=== PATIENT | male | born 1970 | race African-American/Black ===

== ENCOUNTER 2018-05-31 06:37 | Emergency (ER) | payer BC ==
[~2018-05-31] VITALS: Ht 182.9 cm; Wt 71.9 kg
[2018-05-31 06:41] VITALS: BP 121/76
[2018-05-31] MEDS ORDERED: LIDOCAINE-MPF 1%, 5ML INFIL ONE (07:30)
[2018-05-31] MEDS ORDERED: LIDOCAINE-MPF 2%, 2ML ONE (07:40)
[2018-05-31] MEDS ORDERED: BACITRACIN ZINC OINT 500U/GM, 0.9 GM ONE (07:57)
== END 2018-05-31 08:26 | disposition home or self-care (01) ==
LOC: ED 08:00
DX: S01.112A Laceration without foreign body of left eyelid and periocular area, initial encounter (principal); W19.XXXA Unspecified fall, initial encounter; Y93.89 Activity, other specified; Y99.8 Other external cause status; Y92.89 Other specified places as the place of occurrence of the external cause
CPT/HCPCS: 12011; 99283

== ENCOUNTER 2018-06-07 15:30 | Emergency (ER) | payer BC ==
[~2018-06-07] VITALS: Ht 182.9 cm; Wt 72.6 kg
[2018-06-07 15:32] VITALS: BP 120/76
== END 2018-06-07 15:52 | disposition home or self-care (01) ==
LOC: ED 15:45
DX: S01.412D Laceration without foreign body of left cheek and temporomandibular area, subsequent encounter (principal)
CPT/HCPCS: 99281

== ENCOUNTER 2018-08-07 10:27 | Emergency (ER) | payer BC ==
[~2018-08-07] VITALS: Ht 182.9 cm; Wt 73.8 kg
[2018-08-07] MEDS ORDERED: SODIUM CHLORIDE FLUSH 10ML SYR IVF ONE (11:30)
[2018-08-07 11:44] LABS: BASOPHILS # (AUTO) 0.03 x10^3/uL (0-0.1); BASOPHILS % (AUTO) 0 % (0-1); EOSINOPHILS % (AUTO) 1 % (1-7); LYMPHOCYTES % (AUTO) 20 % (22-44); MD NO; MEAN CORPUSCULAR HEMOGLOBIN 30.7 pg (27.5-34.5); MEAN CORPUSCULAR HGB CONC 33.1 g/dL (33.2-36.2); MEAN CORPUSCULAR VOLUME 92.8 fL (81-97); MONOCYTES # (AUTO) 0.92 x10^3/uL (0.2-0.8); MONOCYTES % (AUTO) 7 % (2-9); NEUTROPHILS % (AUTO) 73 % (42-75); PLATELET COUNT 202 x10^3/uL (130-400); RED BLOOD COUNT 5.26 x10^6/uL (4.38-5.82); RED CELL DISTRIBUTION WIDTH 14.3 % (9.4-14.8)
[2018-08-07 11:52] LABS: ALANINE AMINOTRANSFERASE 23 U/L (12-78); ALBUMIN 4.3 g/dL (3.4-5.0); ANION GAP 7 mmol/L (5-15); CALCIUM 9.4 mg/dL (8.5-10.1); CHLORIDE 105 mmol/L (98-107)
[2018-08-07 11:55] LABS: ALKALINE PHOSPHATASE 95 U/L (45-117); BILIRUBIN,TOTAL 0.9 mg/dL (0.2-1.0)
[2018-08-07] MEDS ORDERED: OMNIPAQUE 350 MG/ML, 100ML BOTTLE ONE (12:26)
[2018-08-07 13:07] VITALS: BP 127/91
== END 2018-08-07 13:15 | disposition home or self-care (01) ==
LOC: ED 13:06
DX: K43.9 Ventral hernia without obstruction or gangrene (principal); R10.33 Periumbilical pain; F17.200 Nicotine dependence, unspecified, uncomplicated
CPT/HCPCS: 36415; 74177; 80053; 83690; 85025; 99284; Q9967

== ENCOUNTER 2019-10-24 21:19 | Emergency (ER) | payer BC, OTHER ==
[~2019-10-24] VITALS: Ht 182.9 cm; Wt 72.9 kg
[2019-10-24 21:45] VITALS: BP 134/81
--- NOTE | 2019-10-24 21:55 | NUR ---
PT LAYING BACK IN BED, RESPIRATIONS EVEN AND UNLABORED ON RA. NAD NOTED AT THIS TIME. PT DENIES N/V TODAY, DENIES ABDOMINAL PAIN. REPORT GIVEN TO LAURYN MONSIVAIS.
[2019-10-24] MEDS ORDERED: ONDANSETRON ODT 4 MG ONE (22:20)
[2019-10-24] MEDS: ONDANSETRON ODT 4 MG PO ONE ×2 (22:21→22:22)
--- NOTE | 2019-10-24 22:23 | NUR ---
Pt laying on stretcher, playing games on his phone. Pt refused PO Zofran, but stated labs can be drawn. Will continue to monitor
[2019-10-24 22:43] LABS: MEAN CORPUSCULAR HEMOGLOBIN 30.5 pg (27.5-34.5); MEAN CORPUSCULAR HGB CONC 33.2 g/dL (33.2-36.2); MEAN CORPUSCULAR VOLUME 91.9 fL (81-97); MEAN PLATELET VOLUME 9.4 fL (7.4-10.4); PLATELET COUNT 183 x10^3/uL (130-400); RED BLOOD COUNT 4.79 x10^6/uL (4.38-5.82); RED CELL DISTRIBUTION WIDTH 14.3 % (9.4-14.8)
[2019-10-24 22:48] LABS: ALANINE AMINOTRANSFERASE 22 U/L (12-78); ALBUMIN 3.5 g/dL (3.4-5.0); ANION GAP 5 mmol/L (5-15); CALCIUM 8.4 mg/dL (8.5-10.1); CHLORIDE 109 mmol/L (98-107); CREATININE 1.12 mg/dL (0.7-1.3)
[2019-10-24 22:50] LABS: ALKALINE PHOSPHATASE 83 U/L (45-117); BILIRUBIN,TOTAL 0.4 mg/dL (0.2-1.0); TOTAL PROTEIN 6.8 g/dL (6.4-8.2)
[2019-10-24 22:58] LABS: BASOPHILS # (AUTO) 0.01 x10^3/uL (0-0.1); BASOPHILS % (AUTO) 0 % (0-1); EOSINOPHILS % (AUTO) 2 % (1-7); LYMPHOCYTES # (AUTO) 2.47 x10^3/uL (1-3.4); LYMPHOCYTES % (AUTO) 23 % (22-44); MD SCAN; MONOCYTES # (AUTO) 0.71 x10^3/uL (0.2-0.8); MONOCYTES % (AUTO) 7 % (2-9); NEUTROPHILS # (AUTO) 7.53 x10^3/uL (1.8-6.8); NEUTROPHILS % (AUTO) 69 % (42-75)
== END 2019-10-25 | disposition home or self-care (01) ==
LOC: ED 21:42
DX: R11.2 Nausea with vomiting, unspecified (principal)
CPT/HCPCS: 36415; 80053; 85025; 93005; 99284; Q0162

== ENCOUNTER 2021-01-11 12:15 | Emergency (ER) | payer MEDICAID, OTHER ==
[~2021-01-11] VITALS: Ht 182.9 cm; Wt 74.9 kg
[2021-01-11 14:35] VITALS: BP 135/103
--- NOTE | 2021-01-11 14:45 | NUR ---
PT REC'VD DISCHARGE INSTRUCTIONS AND EDUCATION. PT HAD NO FURTHER QUESTIONS. PT AMBULATED TO DC AREA, STEADY GAIT.
== END 2021-01-11 14:47 | disposition home or self-care (01) ==
LOC: ED 14:41
DX: K40.91 Unilateral inguinal hernia, without obstruction or gangrene, recurrent (principal); F17.210 Nicotine dependence, cigarettes, uncomplicated
CPT/HCPCS: 76857; 99284

== ENCOUNTER 2021-01-31 13:17 | Emergency (ER) | payer MEDICAID ==
[~2021-01-31] VITALS: Ht 182.9 cm; Wt 74.6 kg
--- NOTE | 2021-01-31 14:17 | NUR ---
[employer]: PT AMBULATORY TO ROOM FROM LOBBY AT THIS TIME
--- NOTE | 2021-01-31 14:48 | NUR ---
TASK RN: BRICK GRADER AT BEDSIDE.
[2021-01-31 15:03] VITALS: BP 127/73
--- NOTE | 2021-01-31 15:15 | NUR ---
Patient given discharge instructions and they have confirmed that they understand the instructions. Patient stable and ambulatory with steady gait from ED to private vehicle.
== END 2021-01-31 15:16 | disposition home or self-care (01) ==
LOC: ED 15:10
DX: K40.90 Unilateral inguinal hernia, without obstruction or gangrene, not specified as recurrent (principal)
CPT/HCPCS: 76857; 99284

== ENCOUNTER 2021-02-15 11:55 | Day surgery (SDC) | payer MEDICAID ==
[~2021-02-15] VITALS: Ht 182.9 cm; Wt 74.2 kg
[2021-02-15] MEDS ORDERED: NONE PER PT (12:47)
[2021-02-15] MEDS ORDERED: CHLORHEXIDINE 15 ML UDC PO ONE (13:00)
[2021-02-15] MEDS ORDERED: LACTATED RINGERS 1,000 ML IV SCH (13:00)
[2021-02-15 13:04] VITALS: BP 125/85
[2021-02-15] MEDS ORDERED: FENTANYL PF 250 MCG/5ML ONE (13:36)
[2021-02-15] MEDS ORDERED: MIDAZOLAM 1 MG/ML, 2ML ONE (13:36)
[2021-02-15] MEDS ORDERED: BUPIVACAINE/PF 0.5% ONE (14:22)
[2021-02-15] MEDS ORDERED: EPINEPHRINE 1 MG/ML, 1ML ONE (14:22)
[2021-02-15] MEDS ORDERED: ACETAMINOPHEN 325 MG TABLET PO PRN ×2 (14:30)
[2021-02-15] MEDS ORDERED: OXYcodone 5 MG/5 ML ORAL.SOL UDC PO PRN (14:30)
[2021-02-15] MEDS ORDERED: HYDROmorphone 1 MG/ML, 1ML INJ IVPush PRN (14:30)
[2021-02-15] MEDS ORDERED: PROMETHAZINE 25 MG/ML, 1ML IVPush PRN ×2 (14:30→15:00)
[2021-02-15] MEDS ORDERED: FENTANYL PF 100 MCG/2ML IV PRN (14:30)
[2021-02-15] MEDS ORDERED: LABETALOL 5MG/ML, 20ML IV PRN (14:30)
[2021-02-15] MEDS ORDERED: ALBUTEROL SULFATE 2.5 MG/3 ML NPPB PRN ×2 (14:30→15:00)
[2021-02-15] MEDS ORDERED: LORazepam 2 MG/ML, 1ML IVPush PRN (14:30)
[2021-02-15] MEDS ORDERED: MEPERIDINE/PF 25MG/0.5ML IVPush PRN (14:30)
[2021-02-15] MEDS ORDERED: KETOROLAC 30 MG/1 ML ONE ×2 (14:41→15:01)
[2021-02-15] MEDS ORDERED: LIDOCAINE-MPF 2% ,5ML ONE (15:01)
[2021-02-15] MEDS ORDERED: OXYC-302 PO (15:31)
[2021-02-15] MEDS ORDERED: ROCURONIUM 10MG/ML,5ML ONE (15:34)
[2021-02-15] MEDS ORDERED: NEOSTIGMINE 1 MG/ML, 10ML ONE (15:34)
[2021-02-15] MEDS ORDERED: CEFAZOLIN 1,000 MG ONE (15:34)
[2021-02-15] MEDS ORDERED: DEXAMETHASONE 4 MG/ML, 1ML ONE (15:34)
[2021-02-15] MEDS ORDERED: ONDANSETRON 2MG/ML, 2ML ONE (15:34)
[2021-02-15] MEDS ORDERED: GLYCOPYRROLATE 0.2MG/1ML, 5ML ONE (15:34)
[2021-02-15] MEDS ORDERED: PROPOFOL 10 MG/ML, 20ML ONE (15:34)
== END 2021-02-15 16:35 | disposition home or self-care (01) ==
LOC: OUT 11:55
PROVIDERS: ATTEND Colon & Rectal Surgery
DX: K40.90 Unilateral inguinal hernia, without obstruction or gangrene, not specified as recurrent (principal); F17.210 Nicotine dependence, cigarettes, uncomplicated; Z98.890 Other specified postprocedural states
CPT/HCPCS: 49650; C1781; J0171; J0690; J1100; J1885; J2250; J2405; J2704; J2710; J3010; J7120; S2900